=== PATIENT | female | born 2000 | race Caucasian/White ===

== ENCOUNTER 2022-12-27 13:07 | Emergency (ER) | payer MEDICAID ==
[~2022-12-27] VITALS: Ht 170.2 cm; Wt 80.0 kg
[2022-12-27 13:14] VITALS: O2SAT 100
[2022-12-27 14:28] LABS: CLARITY URINE CLOUDY (CLEAR); COLOR URINE YELLOW (YELLOW); GLUCOSE URINE NEGATIVE (NEGATIVE); KETONES URINE NEGATIVE (NEGATIVE); LEUKOCYTE ESTERASE URINE 3+ (NEGATIVE); NITRITE URINE NEGATIVE (NEGATIVE); OCCULT BLOOD URINE TRACE (NEGATIVE); PH URINE 7.5 (4.5-8.0); PROTEIN URINE NEGATIVE (NEGATIVE); SPECIFIC GRAVITY URINE 1.006 (1.005-1.030); UROBILINOGEN URINE 0.2 E.U./dL (0.2-1.0)
[2022-12-27 14:42] LABS: SQUAMOUS EPITHELIAL CELL URINE 2+ /lpf (RARE/1+)
[2022-12-27 14:43] LABS: BACTERIA URINE 1+
[2022-12-27 14:44] LABS: TRICHOMONAS URINE 1+
[2022-12-27] MEDS ORDERED: CEFTRIAXONE SODIUM 500 MG/VIAL IM ONE (15:00)
[2022-12-27] MEDS ORDERED: AZITHROMYCIN 500 MG TABLET PO ONE (15:00)
[2022-12-27] MEDS ORDERED: CEPH500C2 MT (15:07)
[2022-12-27] MEDS ORDERED: METR-167 MT (15:07)
[2022-12-27 16:26] VITALS: BP 138/69; PULSE 83; RESP 20; TEMP 98.1
== END 2022-12-27 16:27 | disposition home or self-care (01) ==
LOC: ER 13:59
DX: N12 Tubulo-interstitial nephritis, not specified as acute or chronic (principal); F19.90 Other psychoactive substance use, unspecified, uncomplicated
CPT/HCPCS: 81003; 81025; 76942; 96372; 99285; J0696; Z7610 ×2